=== PATIENT | male | born 1975 | race African-American/Black ===

== ENCOUNTER 2016-11-17 05:05 | Emergency (ER) | payer OTHER ==
[~2016-11-17] VITALS: Ht 167.6 cm; Wt 70.8 kg
[2016-11-17] MEDS ORDERED: DEPA1TAB3 PO (05:15)
[2016-11-17] MEDS ORDERED: KEPP500T6 PO (05:15)
[2016-11-17 06:48] VITALS: BP 131/60
== END 2016-11-17 06:49 | disposition home or self-care (01) ==
LOC: EDBD 05:05 → M ED 06:44
DX: G43.909 Migraine, unspecified, not intractable, without status migrainosus (principal)